=== PATIENT | female | born 2000 | race Caucasian/White ===

== ENCOUNTER 2025-04-04 08:06 | Emergency (ER) | payer MEDICAID, SELFPAY ==
[2025-04-04 08:38] VITALS: BP 132/63; PULSE 59; RESP 20; TEMP 36.4; O2SAT 97; BMI 28.6
--- NOTE | 2025-04-04 09:12 | EDNOTE_ITS ---
<Statement entered by Abbie Monteiro MD - 04/10/25 14:45> As co-signing physician, I was present and available for consult prn. I concur with the plan and care as documented by the midlevel provider. Nausea/Vomit./Diarrhea-RME/HPI General Chief complaint: Shortness of Breath/Dyspnea Stated complaint: SOB, LUNGS HURT, N/V SINCE 3AM Time Seen by Provider: 04/04/25 08:14 Arrival date/time: 04/04/25 08:06 This is a 24-year-old female that comes into the emergency room with complaints of nausea, vomiting, diarrhea that started approximately 3 AM this morning. Patient denies abdominal pain. Patient thinks that she had too much to drink last night. Patient states she went to a libertarian. Patient states that she also has been coughing since yesterday. Related Data Previous Rx's ?Medication ?Instructions ?Recorded ketorolac 10 mg tablet 10 mg PO Q8H PRN pain #7 tab s 12/25/23 ondansetron 4 mg disintegrating 4 mg PO Q6H PRN nausea and 04/04/25 tablet vomiting #14 tabs Allergies Allergy/AdvReac Type Severity Reaction Status Date / Time No Known Allergies Allergy Verified 04/04/25 08:09 Review of Systems Review of Systems Systems Reviewed: All systems reviewed, normal except as documented Past Medical History Past Medical History NEUROLOGIC: Positive Migraine Social History SMOKING STATUS: Never smoker SUBSTANCE USE: marijuana ED Exam Narrative Physical exam: VITAL SIGNS: Reviewed. GENERAL APPEARANCE: Alert and interactive, follows commands, no acute distress, HEAD AND FACE: Non-traumatic. ENT: PERRL, conjuctiva pink and clear, eyelid no trauma, Mucous membrane moist. NECK: Supple, nontender, no nuchal rigidity. CHEST: No tenderness, no crepitus, no paradoxical movement, no retractions. LUNGS: Clear, well ventilated, symmetric, no rales, no wheezing, no rhonchi, no stridor, good breath sounds bilaterally. HEART: Regular rate, regular rhythm, no murmur, no gallops. ABDOMEN: Soft, nondistended, no guarding, nontender to light palpation NEUROLOGICAL: Gross motor function intact sensory function intact, Appropriate for age. MUSCULOSKELETAL: low back nontender, full range of motion. EXTREMITIES: No redness no swelling no skin breakdown on bilateral foot and leg. Distal neurovascular status intact bilateral foot SKIN: Color pink, dry, no rash, no lacerations, no abrasions, no contusions. Course Quality Measures none Orders Category Date Time Status Bedside COVID-19 Antigen Test NOW Care 04/04/25 09:07 Completed Bedside Influenza A&B Antigen Test NOW Care 04/04/25 09:08 Completed HCG Qualitative,Urine Stat Lab 04/04/25 09:27 Completed Urinalysis, C/S if Indicated Stat Lab 04/04/25 09:27 Completed Ondansetron Odt [Zofran Odt] Med 04/04/25 09:08 Discontinued 4 mg PO X1 ONE Vital Signs Vital signs: Vital Signs Temperature 97.6 F 04/04/25 08:38 Pulse Rate 59 L 04/04/25 08:38 Respiratory Rate 20 04/04/25 08:38 Blood Pressure 132/63 H 04/04/25 08:38 Pulse Oximetry (%) 97 04/04/25 08:38 Oxygen Delivery Method Room Air 04/04/25 08:38 Nausea/Vomiting/Diarrhea MDM Narrative MDM Narrative:: Patient given Zofran. Patient does not know she is . Will run a test and a UA. Will also swab patient for COVID and for flu. COVID and flu negative. UA negative hCG negative. Patient feels better after Zofran. Patient told to rest and plenty of fluids. I encourage patient to eat a bland diet. Patient told to follow-up with primary provider in 1 to 2 days. [place] to the emergency room symptoms change or worsen peer Felician[place] dictation: Although this document has been carefully reviewed, there may still be some phonetic and other typographical errors. These errors are purely grammatical due to imperfections in the software program and should not be construed in any way to compromise the substance of the patient's medical care during this visit. Patient data External records reviewed:: [facility] previous records Clinical information provided by:: patient Social determinants that could affect healthcare access:: none Patient has the following chronic illnesses:: None How is presenting disease/condition affected by chronic disease/condition?: no chronic disease Evaluation data The following diagnostics were reviewed and interpreted by me:: lab results Lab and/or radiology exams considered but not ordered:: NONE Interpretation Summary: SEE NOTE Medications / Prescriptions Medications / Prescriptions considered but not ordered:: NONE Medication administrations:: Medication Administration History Discontinued Medications Ondansetron HCl (Ondansetron Odt 4 Mg Tabrap) 4 mg PO X1 ONE; Protocol Stop: 04/04/25 09:09 Last Admin: 04/04/25 09:15 Dose: 4 mg Documented By: NATHALIE SEE MAR Consultations Consultation(s) initiated? (list below): No Diagnosis Nausea Differential Diagnosis: food poisoning, dehydration and other (VIRAL ILLNESS ) Most likely diagnosis given after review of the tests above:: VOMITING Admission Indicated Admission indicated?: not indicated Admission Request Was there a request for admission?: No Disposition Plan Disposition Plan: Discharge Discharge Attestation Discharge Attestation: The patient and all family members were given an opportunity to ask questions and understood the discharge instructions. Discharge instructions specifically effects, indications for sooner follow up or return to the emergency department, and the expected course of current diagnosis. Patient condition: Stable Discharge Plan Plan Patient Disposition: HOME (Self Care) Patient condition on transfer: Stable Prescriptions/Referrals Prescriptions/Med Rec: New ondansetron 4 mg tablet,disintegrating 4 mg PO Q6H PRN (Reason: nausea and vomiting) Qty: 14 0RF No Action ketorolac 10 mg tablet 10 mg PO Q8H MDD 30 PRN (Reason: pain) Qty: 7 0RF Rx Instructions: maximum total duration of 5 days from all oral, intranasal, or parenteral formulations Take with food, avoid taking on empty stomach, drink a lot of water Referrals: Ketan Garces MD [Primary Care Provider, Family Practice] - In 1 week Problem List Clinical Impression: Vomiting and diarrhea Patient/Caregiver Discharge Instructions Discharge Activity: activity as tolerated Education Materials: ED Vomiting (Adult) Additional Instructions: Follow up with primary provider in 1-2 days. Come back to ED if symptoms change or worsen Print Language: Yemeni Stand Alone Forms: [employer] Award Info., Work/School Release, Patient Portal Info Letter CHANDLER/IZAIAH Supervising Physician YONATHAN Supervising Physician: geraldine
[2025-04-04] MEDS: ONDANSETRON ODT 4 MG TABRAP PO (09:15)
[2025-04-04 09:35] LABS: Collection Type, Urine Voided
[2025-04-04 09:55] LABS: Amorphous Crystals,Urine Present (Absent); Bacteria,Urine Rare; Bilirubin,Urine Negative (Negative); Blood,Urine Negative (Negative); Clarity,Urine Turbid (Clear/Hazy); Color,Urine Yellow (Lt Yel-Yel); Culture Indicated,Urine Not Indicated; Glucose, Urine Negative (Negative); Ketones,Urine 2+ (Negative); Leukocyte Esterase,Urine Negative (Negative); Nitrite,Urine Negative (Negative); PH,Urine 8.5 (5.0-7.0); Protein,Urine 2+ (Neg - Trace); RBC,Urine 2 /hpf (0-3); Specific Gravity,Urine 1.027 (1.001-1.035); Squamous Epithelial Cell,Urine 36 /hpf (0-5); Transitional Epi Cells,Urine < 1 /hpf (0-5); Urobilinogen,Urine Negative mg/dL (0.0-1.0); WBC,Urine 1 /hpf (0-5)
[2025-04-04 09:56] LABS: HCG Qualitative,Urine Negative
== END 2025-04-04 11:23 | disposition home or self-care (01) ==
PROVIDERS: Emergency Provider Nurse Practitioner Family; PCP Family Medicine
DX: R11.10 Vomiting, unspecified (principal); R19.7 Diarrhea, unspecified
CPT/HCPCS: 81001; 81025; 87400; 87811; 99281; Q0162